=== PATIENT | male | born 1930 | race Caucasian/White ===

== ENCOUNTER 2017-12-26 08:44 | Inpatient (IN) | payer MEDICARE, BC ==
[2017-12-26 09:36] LABS: BASO % 0.4 % (0-6); EOS % 0.8 % (0-6); GRAN % 72.5 % (47-80); HEMATOCRIT 40.8 % (42.0-52.0); HEMOGLOBIN 13.5 gm/dl (14.0-18.0); MEAN CELL VOLUME 87.4 fl (81-97); MEAN CORPUSCULAR HEMOGLOBIN 28.9 pg (27-33); MEAN CORPUSCULAR HGB CONC 33.1 g/dl (32-36); MEAN PLATELET VOLUME 9.1 fl (7.4-10.4); MONO % 9.3 % (0-9); PLATELET COUNT 175 K/uL (130-400); RED BLOOD COUNT 4.67 M/uL (4.40-5.70); RED CELL DISTRIBUTION WIDTH 13.6 % (11.5-14.5); WHITE BLOOD COUNT W/O DIFF 4.8 K/uL (4.2-12.2)
[2017-12-26 09:47] LABS: INFLUENZA A NEGATIVE (NEGATIVE); INFLUENZA B NEGATIVE (NEGATIVE)
[2017-12-26 09:52] LABS: BLOOD UREA NITROGEN 15 mg/dL (8-23); CREATININE 0.8 mg/dL (0.7-1.2); EST GLOMERULAR FILTRATION RATE > 60 mL/min
[2017-12-26 09:53] LABS: TOTAL PROTEIN 6.7 g/dL (6.6-8.7)
[2017-12-26 09:55] LABS: GLUCOSE,RANDOM 102 mg/dL (74-109)
[2017-12-26 09:57] LABS: ALB/GLOB RATIO 1.6 (1.1-1.8); ALBUMIN 4.1 g/dL (4.0-5.0); ALKALINE PHOSPHATASE 63 U/L (40-129); ALT/SGPT 10 U/L (<41); AST/SGOT 13 U/L (10.0-50.0)
[2017-12-26 09:58] LABS: CREATINE PHOSPHOKINASE 80 U/L (39-308)
[2017-12-26 09:59] LABS: CKMB 4.7 ng/mL (<6.73)
[2017-12-26 11:09] LABS: URINE APPEARANCE CLEAR; URINE BILIRUBIN NEGATIVE (NEGATIVE); URINE BLOOD NEGATIVE (NEGATIVE); URINE COLOR YELLOW; URINE GLUCOSE (UA) NEGATIVE (NEGATIVE); URINE KETONE NEGATIVE (NEGATIVE); URINE LEUKOCYTE ESTERASE NEGATIVE (NEGATIVE); URINE NITRITE NEGATIVE (NEGATIVE); URINE PROTEIN NEGATIVE (NEGATIVE); URINE UROBILINOGEN 0.2 E.U./dL (0.20 - 1.00)
--- NOTE | 2017-12-26 11:38 | Emergency Department Record ---
History of Present Illness - General Chief Complaint: Dizziness Stated Complaint: DIZZINESS Time Seen by Provider: 12/26/17 08:48 Source: Patient, EMS Mode of Arrival: EMS Limitations: No limitations - History of Present Illness Initial Comments: pt was brought in via ems for weakness, not feeling well and dizziness. he also had the chills this am and feels like he may have the flu MD Complaint: Dizziness -: Unknown Description: Off-balance History of Same: Yes History of Trauma: No Severity: Mild Improves With: Remaining still Worsens With: Movement Associated Symptoms: Denies other symptoms - Melissa Coma Scale Eye Response: (4) Open spontaneously Motor Response: (6) Obeys commands Verbal Response: (5) Oriented Melissa Total: 15 - Symptoms of Stroke Symptoms of stroke: Dizziness - Related Data Home Medications Medication Instructions Recorded Confirmed Last Taken Acetaminophen [Tylenol Extra 500 mg PO ASDIR 12/26/17 12/26/17 Unknown Strength] Aspirin 325 mg PO DAILY 12/26/17 12/26/17 12/26/17 Bisacodyl [Dulcolax] 1 supp ASDIR 12/26/17 12/26/17 Unknown Citalopram Hydrobromide [Celexa] 20 mg PO DAILY 12/26/17 12/26/17 Unknown Clopidogrel Bisulfate [Plavix] 75 mg PO DAILY 12/26/17 12/26/17 Unknown Lisinopril [Zestril] 5 mg PO DAILY 12/26/17 12/26/17 Unknown Lovastatin 20 mg PO BID 12/26/17 12/26/17 Unknown Magnesium Citrate [Citrate of 296 ml PO ASDIR 12/26/17 12/26/17 Unknown Magnesia] Metoprolol Succinate 25 mg PO DAILY 12/26/17 12/26/17 Unknown Sennosides [Senna Laxative] 8.6 mg PO ASDIR 12/26/17 12/26/17 Unknown Allergies Allergy/AdvReac Type Severity Reaction Status Date / Time No Known Drug Intolerances Allergy Unknown no Verified 12/26/17 09:02 allergies Travel Screening - Travel/Exposure Within Last 30 Days Have you traveled within the last 30 days?: No Review of Systems Reviewed: No additional complaints except as noted below Constitutional: Reports: As per HPI, Chills, Weakness. Denies: Fever, Malaise, Night sweats, Weight change Eyes: Reports: As per HPI. Denies: Eye discharge, Eye pain, Photophobia, Vision change ENT: Reports: As per HPI. Denies: Congestion, Dental pain, Ear pain, Epistaxis , Hearing loss, Throat pain Respiratory: Reports: As per HPI. Denies: Cough, Dyspnea, Hemoptysis, Stridor, Wheezes Cardiovascular: Reports: As per HPI. Denies: Arrhythmia, Chest pain, Dyspnea on exertion, Edema, Murmurs, Orthopnea, Palpitations, Paroxysmal nocturnal dyspnea, Rheumatic Fever, Syncope Endocrine: Reports: As per HPI. Denies: Fatigue, Heat or cold intolerance, Polydipsia, Polyuria Gastrointestinal: Reports: As per HPI. Denies: Abdominal pain, Constipation, Diarrhea, Hematemesis, Hematochezia, Melena, Nausea, Vomiting Genitourinary: Reports: As per HPI. Denies: Dysuria, Frequency, Hematuria, Incontinence, Retention, Testicular pain, Testicular mass, Urgency Musculoskeletal: Reports: As per HPI. Denies: Arthralgia, Back pain, Gout, Joint swelling, Myalgia, Neck pain Skin: Reports: As per HPI. Denies: Bruising, Change in color, Change in hair/ nails, Lesions, Pruritus, Rash Neurological: Reports: As per HPI, Weakness. Denies: Abnormal gait, Confusion, Headache, Numbness, Paresthesias, Seizure, Tingling, Tremors, Vertigo Psychiatric: Reports: As per HPI. Denies: Anxiety, Auditory hallucinations, Depression, Homicidal thoughts, Suicidal thoughts, Visual hallucinations Hematological/Lymphatic: Reports: As per HPI. Denies: Anemia, Blood Clots, Easy bleeding, Easy bruising, Swollen glands Past Medical History - SOCIAL HISTORY Smoking Status: Never smoker Alcohol Use: None Drug Use: None - RESPIRATORY Hx Respiratory Disorders: No - CARDIOVASCULAR Hx Cardio Disorders: Yes Hx Cardiac Cath: Yes Hx Heart Attack: Yes (2) Comment:: aortic aneurysm, high cholesterol - NEURO Hx Neuro Disorders: No - GI Hx GI Disorders: No - Hx Genitourinary Disorders: Yes Hx Kidney Stones: Yes Hx Prostate Problems: Yes Comment:: urinary retention - ENDOCRINE Hx Endocrine Disorders: No - MUSCULOSKELETAL Hx Musculoskeletal Disorders: Yes Hx Arthritis: Yes (hands and knees, neck) - PSYCH Hx Psych Problems: No - HEMATOLOGY/ONCOLOGY Hx Hematology/Oncology Disorders: Yes Comment:: "bleeding tendencies" Family Medical History Any Significant Family History?: No Physical Exam - General General Appearance: Alert, Oriented x3, Cooperative, Mild distress - Head Head exam: Normal inspection - Eye Eye exam: Normal appearance, PERRL, EOMI Pupils: Normal accommodation - ENT ENT exam: Normal exam, Mucous membranes moist, Normal external ear exam, Normal orophraynx Ear exam: Normal external inspection. negative: External canal tenderness Nasal Exam: Normal inspection. negative: Discharge, Sinus tenderness Mouth exam: Normal external inspection, Tongue normal Teeth exam: Normal inspection. negative: Dental caries Throat exam: Normal inspection. negative: Tonsillar erythema, Tonsillar exudate - Neck Neck exam: Normal inspection, Full ROM. negative: Tenderness - Respiratory Respiratory exam: Normal lung sounds bilaterally. negative: Respiratory distress - Cardiovascular Cardiovascular Exam: Regular rate, Normal rhythm, Normal heart sounds - GI/Abdominal GI/Abdominal exam: Soft, Normal bowel sounds. negative: Tenderness - Rectal Rectal exam: Deferred - exam: Deferred - Extremities Extremities exam: Normal inspection, Full ROM, Normal capillary refill. negative: Tenderness - Back Back exam: Reports: Normal inspection, Full ROM. Denies: Muscle spasm, Rash noted, Tenderness - Neurological Neurological exam: Alert, CN II-XII intact, Normal gait, Oriented X3 - Psychiatric Psychiatric exam: Normal affect, Normal mood - Skin Skin exam: Dry, Intact, Normal color, Warm Course Vital Signs 12/26/17 12/26/17 08:54 10:03 Temperature 98.3 F Pulse Rate 71 Pulse Rate [ 71 Pulse Ox Probe] Respiratory 18 18 Rate Blood Pressure 179/103 Blood Pressure 164/102 [Right Arm] Pulse Ox 98 97 Medical Decision Making - Lab Data Result diagrams: 12/26/17 09:30 12/26/17 09:30 Lab Results 12/26/17 12/26/17 12/26/17 Range/Units 09:30 09:30 09:30 WBC 4.8 (4.2-12.2) K/uL RBC 4.67 (4.40-5.70) M/uL Hgb 13.5 L (14.0-18.0) gm/dl Hct 40.8 L (42.0-52.0) % MCV 87.4 (81-97) fl MCH 28.9 (27-33) pg MCHC 33.1 (32-36) g/dl RDW 13.6 (11.5-14.5) % Plt Count 175 (130-400) K/uL MPV 9.1 (7.4-10.4) fl Gran % 72.5 (47-80) % Lymphocytes % 17.0 (16-45) % Monocytes % 9.3 H (0-9) % Eosinophils % 0.8 (0-6) % Basophils % 0.4 (0-6) % Carboxyhemoglobin (0-1.5) % Sodium 126 L (136-145) mmol/L Potassium 4.8 H (3.4-4.5) mmol/L Chloride 89 L (98-107) mmol/L Carbon Dioxide 25.0 (22-29) mmol/L Anion Gap 12.0 (7-16) BUN 15 (8-23) mg/dL Creatinine 0.8 (0.7-1.2) mg/dL Estimated GFR > 60 mL/min Random Glucose 102 (74-109) mg/dL Calcium 8.7 L (8.8-10.2) mg/dL Total Bilirubin 0.40 (0.2-1.0) mg/dL AST 13 (10.0-50.0) U/L ALT 10 (<41) U/L Alkaline Phosphatase 63 (40-129) U/L Creatine Kinase 80 (39-308) U/L CK-MB (CK-2) 4.7 (<6.73) ng/mL Troponin T < 0.010 (0-0.010) ng/mL Total Protein 6.7 (6.6-8.7) g/dL Albumin 4.1 (4.0-5.0) g/dL Globulin 2.6 (1.4-4.8) gm/dL Albumin/Globulin Ratio 1.6 (1.1-1.8) Urine Color Urine Appearance Urine pH (5.0-8.0) Ur Specific Calhoun (1.002-1.030) Urine Protein (NEGATIVE) Urine Glucose (UA) (NEGATIVE) Urine Ketones (NEGATIVE) Urine Blood (NEGATIVE) Urine Nitrite (NEGATIVE) Urine Bilirubin (NEGATIVE) Urine Urobilinogen (0.20 - 1.00) E.U./dL Ur Leukocyte Esterase (NEGATIVE) Influenza Type A Ag Negative (NEGATIVE) Influenza Type B Ag Negative (NEGATIVE) 12/26/17 12/26/17 Range/Units 09:30 11:00 WBC (4.2-12.2) K/uL RBC (4.40-5.70) M/uL Hgb (14.0-18.0) gm/dl Hct (42.0-52.0) % MCV (81-97) fl MCH (27-33) pg MCHC (32-36) g/dl RDW (11.5-14.5) % Plt Count (130-400) K/uL MPV (7.4-10.4) fl Gran % (47-80) % Lymphocytes % (16-45) % Monocytes % (0-9) % Eosinophils % (0-6) % Basophils % (0-6) % Carboxyhemoglobin 2.6 H (0-1.5) % Sodium (136-145) mmol/L Potassium (3.4-4.5) mmol/L Chloride (98-107) mmol/L Carbon Dioxide (22-29) mmol/L Anion Gap (7-16) BUN (8-23) mg/dL Creatinine (0.7-1.2) mg/dL Estimated GFR mL/min Random Glucose (74-109) mg/dL Calcium (8.8-10.2) mg/dL Total Bilirubin (0.2-1.0) mg/dL AST (10.0-50.0) U/L ALT (<41) U/L Alkaline Phosphatase (40-129) U/L Creatine Kinase (39-308) U/L CK-MB (CK-2) (<6.73) ng/mL Troponin T (0-0.010) ng/mL Total Protein (6.6-8.7) g/dL Albumin (4.0-5.0) g/dL Globulin (1.4-4.8) gm/dL Albumin/Globulin Ratio (1.1-1.8) Urine Color Yellow Urine Appearance Clear Urine pH 7.0 (5.0-8.0) Ur Specific Calhoun 1.010 (1.002-1.030) Urine Protein Negative (NEGATIVE) Urine Glucose (UA) Negative (NEGATIVE) Urine Ketones Negative (NEGATIVE) Urine Blood Negative (NEGATIVE) Urine Nitrite Negative (NEGATIVE) Urine Bilirubin Negative (NEGATIVE) Urine Urobilinogen 0.2 (0.20 - 1.00) E.U./dL Ur Leukocyte Esterase Negative (NEGATIVE) Influenza Type A Ag (NEGATIVE) Influenza Type B Ag (NEGATIVE) Disposition Disposition: Admit Clinical Impression: Hyponatremia, Carbon monoxide exposure Disposition: Still a Patient at [facility] Decision to Admit: Admit from ER Decision to Admit Date: 12/26/17 Decision to Admit Time: 11:39 Quality - Quality Measures Quality Measures: N/A - Blood Pressure Screening Does Patient Have Any of the Following: Active Dx of HTN Blood Pressure Classification: Hypertensive Reading Systolic Measurement: 179 Diastolic Measurement: 103 Screening for High Blood Pressure: Patient Exclusion, Hx of HTN [G9744]
[2017-12-26] MEDS ORDERED: ACETAMINOPHEN 500 MG TABLET PO PRN (13:25)
[2017-12-26] MEDS ORDERED: PNEUM 13-VAL/PF 0.5 ML IM ONE (14:00)
[2017-12-26] MEDS ORDERED: MECLIZINE 25 MG TABLET PO PRN (17:42)
[2017-12-26] MEDS: ENOXAPARIN 40 MG/0.4 ML SYR SQ SCH (19:13)
[2017-12-26] MEDS: DIPHENHYDRAMINE HCL 25 MG CAPSULE PO SCH ×2 (20:30→22:28)
[2017-12-26] MEDS: LISINOPRIL 5 MG TABLET PO SCH ×2 (20:30→21:13)
[2017-12-26] MEDS: SIMVASTATIN 10MG TABLET PO SCH ×2 (20:30→21:13)
[2017-12-26 22:58] LABS: OSMOLALITY,SERUM 265 mOsm/kg (280-295)
[2017-12-26 23:32] LABS: OSMOLALITY,URINE 373 mOsm/kg (250-1200)
[2017-12-27 06:36] LABS: BLOOD UREA NITROGEN 13 mg/dL (8-23); CREATININE 0.8 mg/dL (0.7-1.2); EST GLOMERULAR FILTRATION RATE > 60 mL/min; GLUCOSE,RANDOM 100 mg/dL (74-109)
--- NOTE | 2017-12-27 07:17 | RADIOLOGY REPORT ---
EXAM: CHEST, TWO VIEWS HISTORY: CHEST PAIN. TECHNIQUE: Frontal and lateral views of the chest were obtained. Comparison: 08/03/13 chest. FINDINGS: The heart size is stable. Osteopenia with underlying COPD. Calcified granulomata in the right upper lobe. Subsegmental atelectasis in each lung base. No pneumothorax. IMPRESSION: COPD. CALCIFIED GRANULOMATA. OSTEOPENIA. JOB NUMBER: [id number] MTDD
[2017-12-27] MEDS: SIMVASTATIN 10MG TABLET PO SCH (09:56)
[2017-12-27] MEDS: ENOXAPARIN 40 MG/0.4 ML SYR SQ SCH (09:56)
[2017-12-27] MEDS ORDERED: LISINOPRIL 5 MG TABLET PO SCH (10:00)
[2017-12-27] MEDS ORDERED: ASPIRIN 325 MG TAB ENTERIC-COATED PO SCH (10:00)
[2017-12-27] MEDS ORDERED: CITALOPRAM 20 MG TABLET PO SCH (10:00)
[2017-12-27] MEDS ORDERED: METOPROLOL SUCC 25 MG TAB.ER PO SCH (10:00)
[2017-12-27] MEDS ORDERED: CLOPIDOGREL 75MG TABLET PO SCH (10:00)
--- NOTE | 2017-12-27 11:15 | Discharge Note ---
VTE H&P Assessment - Risk for VTE Risk for VTE: Yes Risk Level: Moderate Risk Assessment Date: 12/26/17 Risk Assessment Time: 12:00 VTE Orders Placed or Will Be Placed: Yes Discharge Medications - Discharge Medications Home Medications: Ambulatory Orders Acetaminophen [Tylenol Extra Strength] 500 mg PO ASDIR 12/26/17 [Last Taken Unknown] Aspirin 325 mg PO DAILY 12/26/17 [Last Taken 12/26/17] Bisacodyl [Dulcolax] 1 supp ASDIR 12/26/17 [Last Taken Unknown] Clopidogrel Bisulfate [Plavix] 75 mg PO DAILY 12/26/17 [Last Taken Unknown] Lisinopril [Zestril] 5 mg PO DAILY 12/26/17 [Last Taken Unknown] Lovastatin 20 mg PO BID 12/26/17 [Last Taken Unknown] Magnesium Citrate [Citrate of Magnesia] 296 ml PO ASDIR 12/26/17 [Last Taken Unknown] Metoprolol Succinate 25 mg PO DAILY 12/26/17 [Last Taken Unknown] Sennosides [Senna Laxative] 8.6 mg PO ASDIR 12/26/17 [Last Taken Unknown] Metoprolol Succinate [Toprol Xl] 25 mg PO DAILY tab.er.24h 12/27/17 [Last Taken Unknown] Discharge Note - Date Date of Discharge Note: 12/27/17 Disposition: Home, Self-Care Condition: (1) Good Additional Instructions: follow up with Dr. Hill in one week stop celexa limiting water to two quarts per day Forms: Patient Portal Access Activity at Discharge: Increase Activity as Tolerated Diet at Discharge: Regular Diet
--- NOTE | 2017-12-27 13:30 | History and Physical Report ---
DATE: 12/26/2017 CHIEF COMPLAINT: Dizziness which has resolved at this time. Possible carbon monoxide exposure. Hyponatremia. HISTORY OF PRESENT ILLNESS: This 87-year-old male came to the emergency department because of dizziness when he got up to start walking. He states that it has been going on for a couple of weeks on and off. He is not a very good historian. This was obtained from the nursing note. He also felt he had chills. This morning his temperature in the emergency department was 98.3. He was evaluated by Dr. Montoya, was diagnosed with hyponatremia and carbon monoxide elevation and put in the hospital for further evaluation and care. He is on fluid restriction diet of 1600 mL/24 hours. He only admits to drinking 1 quart of water a day. He denies any nausea, vomiting, or diarrhea. He has a bowel movement every couple of days and has loose stool with possibly using laxatives. He recently stopped narcotics about 3 months ago. PAST MEDICAL HISTORY: Coronary artery disease with [place] x2, heart catheterization has been done in the past, he has an aortic aneurysm, he has osteoarthritis in hands and knees and back. 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 He has had problems with kidney stones, prostate problems, and urinary retention. He has arthritis of the hands, knees, and neck. Walks with a walker. Has some bleeding tendencies. MEDICATIONS: 1. Celexa 20 mg a day. 2. Lovastatin 20 mg b.i.d. 3. Lisinopril 5 mg daily. 4. Dulcolax 1 suppository p.r.n. 5. Aspirin 325 daily. 6. Tylenol 500 p.r.n. 7. Senna laxatives p.r.n. 8. Metoprolol succinate 25 mg daily. 9. Citrate of magnesium p.r.n. 10. Plavix 75 mg daily. ALLERGIES: No known drug allergies. FAMILY/PSYCHOSOCIAL HISTORY: Never smoked. No alcohol or drug use. No significant family history. REVIEW OF SYSTEMS: HEENT: No upper respiratory infection symptoms, cough, cold, or congestion. Cardiovascular: No chest pain, palpitations, or arrhythmia. Respiratory: No cough, cold, or congestion. Gastrointestinal: No nausea, vomiting, diarrhea, black stools, or bloody stools. Genitourinary: No dysuria, hematuria, frequency, or burning on urination. Musculoskeletal: He has arthritis. He walks with a walker. It is mostly in the hands, knees, and neck is arthritis. Neurological: No CVA, paralysis, or paresthesias. Endocrine: No diabetes or thyroid disease. Integument: No rash, ulcers, change in moles, or yellow skin. PHYSICAL EXAMINATION: VITALS: Height 5 feet 11 inches, weight 185 pounds. Temperature 97.9, pulse 70, blood pressure 145/88, heart rate 107, respiratory rate 18, pulse ox 97% on room air. HEENT: Pupils are equal, round, and reactive to light and accommodation. Extraocular muscles are intact. Throat is clear. Nose is clear. Tympanic membranes are york. NECK: Supple. No jugular venous distention. No hepatojugular reflux. No carotid bruits. Thyroid is smooth. CARDIOVASCULAR: Regular rate and rhythm without murmurs, clicks, rubs, or gallops. RESPIRATORY: Clear to auscultation and percussion. ABDOMEN: Soft, nontender. No hepatosplenomegaly, no masses, no tenderness. Bowel sounds are active. No bruits. EXTREMITIES: No pitting edema. No cyanosis, no clubbing. Full range of motion. Peripheral pulses are good. BREASTS: Normal male breasts. RECTAL: Exam deferred. GENITALIA: Deferred. NEUROLOGIC: Cranial nerves II-XII intact. No gross defects. Sensation normal, strength normal. Deep tendon reflexes equal bilaterally with Babinski negative. MENTAL STATUS: Alert and oriented x3. IMPRESSION: 1. Dizziness, resolved. 2. Possible benign postural vertigo. 3. Hyponatremia at 126. 4. Elevated carbon monoxide level. He is having his furnace and house checked out. PLAN: Fluid restriction 1600 mL in 24 hours. We will recheck his sodium tomorrow. We will stop the Celexa. It could cause hyponatremia. Also we will check to make sure his lisinopril does not have a kicker of hydrochlorothiazide with it. Further evaluation tomorrow. We will give him Antivert 12.5 mg q.8 h. p.r.n. if he has any more vertigo. [facility]
--- NOTE | 2017-12-27 13:30 | Discharge Summary ---
DATE: 12/27/2017 DISCHARGE DIAGNOSES: 1. Hyponatremia, resolving. It was 130. 2. Carbon monoxide exposure. 3. Dizziness, resolving. This is an observation patient. ATTENDING PHYSICIAN: Paul Caicedo DO REASON FOR HOSPITALIZATION: This 87-year-old male presented to the emergency department with dizziness and weakness. He states that it has been going on for the last couple of weeks. He woke up this morning at 6 a.m. with fever with chills. EMS was called and he was brought to the emergency department and evaluated by Dr. Montoya and admitted to the hospital for hyponatremia, carbon monoxide exposure, and dizziness. His carbon monoxide level is 2.6. He does not smoke cigarettes. The normal range is up to 1.5. His furnace was checked out and there was a leak in his furnace and that has been fixed, according to the patient. SIGNIFICANT FINDINGS: Carbon monoxide is 2.6. His sodium level is 126 which has come up to 130 with a fluid restriction and stopping the Celexa. His white count was 8400, hemoglobin 13.5, platelet count 175. BUN was 15, creatinine 0.8. His urine was negative, specific gravity was 1.010. The cardiac enzymes were normal. Liver enzymes were normal. Serum osmolality was a little bit low at 265. Normal is 280-295. Urine osmolality was normal at 373. The chest x-ray showed no acute abnormality, COPD, calcified granuloma, and osteopenia. The EKG showed normal sinus rhythm, incomplete intraventricular conduction delay. No ST-T-wave changes that are acute. THERAPY PROVIDED: He was restricted on fluids, 1600 mL for the 24 hours. Celexa was stopped and his electrolytes were repeated. He is doing much better. He is walking around the room without any difficulties. CONDITION ON DISCHARGE: Much improved. DISCHARGE INSTRUCTIONS: Follow up with Dr. Hill in 1 week. Postop the Celexa. The furnace has been fixed. It is safe to go home at this time. He is to continue his home medications of metoprolol 25 mg once a day, lovastatin 20 mg b.i.d., lisinopril 5 mg daily, Plavix 75 mg daily, and aspirin 325 daily. His other p.r.n. medications he can use for constipation as needed. [facility]
== END 2017-12-27 12:20 | disposition home or self-care (01) | DRG 641 ==
LOC: ER 08:44 → MEDSURG 13:08
PROVIDERS: ADMIT Internal Medicine; ATTEND Emergency Medicine
DX: R42 Dizziness and giddiness (principal); R53.1 Weakness; M19.90 Unspecified osteoarthritis, unspecified site; E87.1 Hypo-osmolality and hyponatremia; T58.01XA Toxic effect of carbon monoxide from motor vehicle exhaust, accidental (unintentional), initial encounter; H81.10 Benign paroxysmal vertigo, unspecified ear; I25.10 Atherosclerotic heart disease of native coronary artery without angina pectoris; I71.9 Aortic aneurysm of unspecified site, without rupture; I25.2 Old myocardial infarction
CPT/HCPCS: 71046; 80048; 80053; 81003; 82375; 82550; 82553; 84484; 85025; 87400; 93005; 93010; 99223; 99239; 99285; J1650

== ENCOUNTER 2019-10-25 15:41 | Emergency (ER) | payer MEDICARE, BC ==
[2019-10-25] MEDS ORDERED: 0.9 % SODIUM CHLORIDE 1,000 ML BAG IV ONE (16:07)
[2019-10-25] MEDS ORDERED: ONDANSETRON HCL IV 4 MG/2 ML VIAL IV ONE (16:07)
[2019-10-25] MEDS ORDERED: PANTOPRAZOLE SODIUM IV 40 MG VIAL IVP ONE (16:07)
--- NOTE | 2019-10-25 16:10 | Emergency Department Record ---
History of Present Illness - General Chief Complaint: Abdominal Pain Stated Complaint: ABD PAIN Time Seen by Provider: 10/25/19 15:55 Source: Patient Mode of Arrival: Ambulatory Limitations: No limitations - History of Present Illness Initial Comments: The patient is here due to a 5-6 hour hx of cramping mid abdominal pain. There has been mild nausea but no vomiting. The patient did have a good BM today and then loose stool. There has been no difficulty urinating, fever, chills, back pain, CP or SOB. The patient has had an AAA repair surgery in the past over 20 years ago. MD Complaint: Abdominal pain Onset/Timin -: Hour(s) Location: Periumbilical Radiation: None Severity scale (1-10): 4 Quality: Cramping Consistency: Intermittent Associated Symptoms: Diarrhea - Related Data Home Medications Medication Instructions Recorded Confirmed Last Taken Lubiprostone [Amitiza] 8 mcg PO DAILY 10/25/19 10/25/19 10/25/19 Previous Rx's Medication Instructions Recorded Metoprolol Succinate [Toprol Xl] 25 mg PO DAILY tab.er.24h 12/27/17 Allergies Allergy/AdvReac Type Severity Reaction Status Date / Time No Known Drug Intolerances Allergy Unknown no Verified 10/25/19 16:03 allergies Travel Screening - Travel/Exposure Within Last 30 Days Have you traveled within the last 30 days?: No - Travel/Exposure Within Last Year Have you traveled outside the [place] in the last year?: No - Additonal Travel Details Have you been exposed to anyone with a communicable illness?: No Review of Systems Constitutional: Denies: Chills, Fever Eyes: Denies: Eye discharge ENT: Denies: Congestion Respiratory: Denies: Cough, Dyspnea Past Medical History - SOCIAL HISTORY Smoking Status: Former smoker Alcohol Use: None Drug Use: None - RESPIRATORY Hx Respiratory Disorders: No - CARDIOVASCULAR Hx Cardio Disorders: Yes Hx Cardiac Cath: Yes Hx Heart Attack: Yes (2) Comment:: aortic aneurysm, high cholesterol - NEURO Hx Neuro Disorders: No - GI Hx GI Disorders: No - Hx Genitourinary Disorders: Yes Hx Kidney Stones: Yes Hx Prostate Problems: Yes Comment:: urinary retention - ENDOCRINE Hx Endocrine Disorders: No - MUSCULOSKELETAL Hx Musculoskeletal Disorders: Yes Hx Arthritis: Yes (hands and knees, neck) - PSYCH Hx Psych Problems: No - HEMATOLOGY/ONCOLOGY Hx Hematology/Oncology Disorders: Yes Comment:: "bleeding tendencies" Family Medical History Any Significant Family History?: No Physical Exam - General General Appearance: Alert, Oriented x3, Cooperative, No acute distress - Head Head exam: Atraumatic, Normocephalic - Eye Eye exam: Normal appearance - ENT Throat exam: Normal inspection. negative: Tonsillar erythema, Tonsillar exudate - Neck Neck exam: Normal inspection, Full ROM. negative: Tenderness - Respiratory Respiratory exam: Normal lung sounds bilaterally. negative: Respiratory distress - Cardiovascular Cardiovascular Exam: Regular rate, Normal rhythm, Normal heart sounds - GI/Abdominal GI/Abdominal exam: Soft, Normal bowel sounds, Guarding, Tenderness (There is mild to moderate diffuse mid abdominal tenderness with mild guarding but no rebound.). negative: Diminished bowel sounds, Distended, Rebound, Rigid - Extremities Extremities exam: Normal inspection, Full ROM, Normal capillary refill. negative: Tenderness - Neurological Neurological exam: Alert. negative: Motor sensory deficit - Psychiatric Psychiatric exam: negative: Anxious Course Vital Signs 10/25/19 15:47 Temperature 97.7 F Pulse Rate 69 Respiratory 18 Rate Blood Pressure 174/93 Pulse Ox 98 - Reevaluation(s) Reevaluation #1: The patient is doing OK at this time and is resting comfortably. He denies any pain presently. I did discuss the CT results with the patient and daughter and then did discuss the case with Dr. Blackwood (Gen Surg). He would like the patient transferred to the ER at [facility] for admission and the patient agrees with the plan. His daughter would like to drive him there so we will get his records ready. I did discuss the case with Dr. Sheridan at [facility] in the ER and he does accept the patient in an ER to ER transfer. 10/25/19 18:26 Medical Decision Making - Data Complexity MDM Data: Labs Ordered and/or Reviewed, X-Ray Ordered and/or Reviewed (Chest CT: Partial SBO with mild to mod ascites. Neg aortic abnormality.) - Lab Data Result diagrams: 10/25/19 16:13 10/25/19 16:13 Disposition Disposition: Transfer Clinical Impression: SBO (small bowel obstruction) Disposition: Acute Care Hospital Transfer Transfer To: [facility] Reason For Transfer: Gen Surg. Accepting Physician: Jaison Time Discussed w/Accepting Physician: 18:30 Condition: (2) Stable Instructions: Abdominal Pain (ED) Forms: Patient Portal Access Time of Disposition: 18:30 Quality - Quality Measures Quality Measures: N/A - Blood Pressure Screening View Details: Yes Does Patient Have Any of the Following: Active Dx of HTN Blood Pressure Classification: Hypertensive Reading Systolic Measurement: 174 Diastolic Measurement: 93 Screening for High Blood Pressure: Patient Exclusion, Hx of HTN [G9744]
[2019-10-25 16:19] LABS: ABSOLUTE NEUTROPHIL COUNT 8.13; HEMATOCRIT 44.5 % (42.0-52.0); HEMOGLOBIN 14.3 gm/dl (14.0-18.0); MEAN CELL VOLUME 91.8 fl (81-97); MEAN CORPUSCULAR HEMOGLOBIN 29.5 pg (27-33); MEAN CORPUSCULAR HGB CONC 32.1 g/dl (32-36); MEAN PLATELET VOLUME 8.6 fl (7.4-10.4); PLATELET COUNT 162 K/uL (130-400); RED BLOOD COUNT 4.85 M/uL (4.40-5.70); RED CELL DISTRIBUTION WIDTH 14.1 % (11.5-14.5); WHITE BLOOD COUNT W/O DIFF 9.6 K/uL (4.2-12.2)
[2019-10-25] MEDS ORDERED: ACETAMINOPHEN 1,000 MG/100 ML BTL IVPB ONE (16:22)
[2019-10-25 16:30] LABS: BLOOD UREA NITROGEN 17 mg/dL (8-23); CREATININE 0.8 mg/dL (0.7-1.2); EST GLOMERULAR FILTRATION RATE > 60 mL/min
[2019-10-25 16:31] LABS: LIPASE 20 U/L (13-60); PLATELET ESTIMATE NORMAL (NORMAL); TOTAL PROTEIN 7.1 g/dL (6.6-8.7)
[2019-10-25 16:33] LABS: GLUCOSE,RANDOM 125 mg/dL (74-109)
[2019-10-25 16:36] LABS: ALBUMIN 4.4 g/dL (4.0-5.0); ALKALINE PHOSPHATASE 63 U/L (40-129); ALT/SGPT 10 U/L (<41); AST/SGOT 12 U/L (10.0-50.0)
[2019-10-25 16:37] LABS: BILIRUBIN,DIRECT < 0.2 mg/dL (0-0.3)
--- NOTE | 2019-10-25 18:09 | CT SCAN REPORT ---
EXAMINATION: CT Abdomen and Pelvis with IV Contrast EXAM DATE: 10/25/2019 6:02 PM TECHNIQUE: CT imaging of the abdomen and pelvis was performed with intravenous contrast. Coronal and sagittal images were reconstructed. IV Contrast: The amount and type of contrast are recorded in the medical record. INDICATION: mid abdominal pain COMPARISON: None ENCOUNTER: Not applicable CT ABDOMEN AND PELVIS FINDINGS: Lung Bases: Bibasilar atelectasis. Small pericardial effusion. Hepatobiliary: The liver has a normal size with a smooth surface. The hepatic and portal veins appear patent. There is small amount of ascites adjacent to the liver. The gallbladder is felt to be presen t. Pancreas: The pancreas is normal. Spleen: The spleen is not enlarged. Small amount of ascites adjacent to the spleen. Adrenals: The adrenal glands are normal. Kidneys, Ureters, & Bladder: A normal right kidney is not identified. Multicystic appearance of the r ight kidney with very thin layer of renal parenchyma present. Multiple calcifications lower pole righ t kidney. Course of the right ureter is difficult to follow. Right ureter not identified on delayed i mages. Left kidney shows no evidence for hydronephrosis. Nonobstructing left nephrolithiasis upper po le. 1.8 cm simple cyst interpolar region. Course and contour of the left ureter unremarkable. Urinary bladder within normal limits. Gastrointestinal: There is dilation of predominantly jejunal loops of small bowel measuring up to 4.0 cm in diameter. Multiple air-fluid levels are present. More normal caliber bowel loops are seen with in the right abdomen predominantly ileum. Transition point is felt to be within the right mid to lowe r abdomen. Areas of bowel wall thickening present most apparent within the right upper abdomen. Multi focal areas of infiltration of the mesentery and areas of fluid adjacent to the bowel. Poor distentio n of the colon. Reproductive Organs: Unremarkable Lymphatic System: There is no adenopathy within the abdomen or pelvis. Vasculature: Heavy atherosclerotic change within the aorta and mesenteric vessels as well as the rivka c vessels. There is suggestion of previous surgery for aortic aneurysm repair. Multilobulated appeara nce of the aorta beginning at the level of the kidneys with an opacified lumen more anterior medially measuring up to 2.5 cm AP. A larger peripherally calcified lobulated nonopacified posterior portion of the aorta measures 3.0 cm AP by 4.6 cm transverse. This nonopacified peripherally calcified portio n of the aorta extends inferiorly and through the level of the iliac vessels. Please clinically corre late with patient's surgical history. The opacified lumen of the aorta shows no evidence for dissecti on. Peripheral mural thrombus is present. Peritoneum: Small to moderate amount of ascites is seen within the abdomen and pelvis. Additional mes enteric fluid is present adjacent to dilated loops of small bowel. No free air. Abdominal Wall & Musculoskeletal: No suspicious bone lesions. IMPRESSION: Dilated loops of predominantly jejunum seen within the abdomen and pelvis measuring up to 4.0 cm in d iameter. Multiple air-fluid levels are present. Findings are concerning for small bowel obstruction. Transition point is felt to be within the right mid to lower abdomen. Ileum shows a more normal calib er within the right mid and lower abdomen. Multifocal areas of infiltration of the mesentery and area s of jejunal bowel wall thickening as well as fluid is present. Suspect previous surgery for aortic aneurysm repair. Multilobulated appearance of the aorta beginning at the level of the kidneys with an opacified anterior lumen and a nonopacified posterior lumen. Per ipheral calcification both lumens and mural thrombus within the opacified lumen. No acute dissection is identified. Please correlate with patient's surgical history as there are no old studies for wang rison. Ascites A normal right kidney is not identified. Multicystic appearance of the right kidney with no excretion on delayed images. Nephrolithiasis Additional findings as detailed above Dictated by: Jose Williamson MD on 10/25/2019 5:35 PM. .
== END 2019-10-25 19:02 | disposition short-term general hospital (02) ==
LOC: ER 15:41
DX: K56.609 Unspecified intestinal obstruction, unspecified as to partial versus complete obstruction (principal); R19.7 Diarrhea, unspecified; I10 Essential (primary) hypertension; Z87.891 Personal history of nicotine dependence
CPT/HCPCS: 99285; 96365; 96375; 99284; 83690; 80076; 80048; 85027; 74177; Q9967; J2405; C9113; J7030